=== PATIENT | female | born 1965 | race Caucasian/White ===

== ENCOUNTER → 2017-04-21 | Outpatient (CLI) | payer OTHER ==
[~2017-04-21] MED LIST: 'XANAX0.5 MG PO; AGGRENOX 25 MG-1 CER PO; ALBUTEROL2.5 MG/0.5 INH; ALPRAZOLAM0.5 M1 PO; ALPRAZOLAM0.5 M3 PO; ALPRAZOLAM0.5 MG PO; AMARYL4 MG PO; AMBIEN10 M1 PO; AMITRIPTYLINE10 MG PO; AMITRIPTYLINE50 MG PO; ANTIVERT/2525 MG PO; ASPIR-LOW81 MG PO; ASPIR-TRIN325 MG PO; ASPIRIN81 MG PO; ATARAX25 MG PO; Amitriptyline H10 MG PO; BACLOFEN10 MG PO; BIAXIN500 MG PO; BRIN10TA PO; BUSPAR5 MG PO; CARVEDILOL12.5 MG PO; CIPRO500 MG PO; CIPROFLOXACIN500 MG PO; CLARITIN10 MG PO; CLINDAMYCIN HC300 MG PO; COMBIVENT1 ARO IH; CORDROL20 MG PO; COZAAR100 MG PO; COZAAR50 MG PO; CYMBALTA30 M1 PO; CYMBALTA30 MG; CYMBALTA30 MG PO; CYMBALTA60 MG; CYMBALTA60 MG PO; DARVOCET N 1001 TAB PO; DAYPRO600 M1 PO; DELTASONE5 MG PO; DICLOFENAC SOD75 MG PO; DIOVAN HCT 12.51 TA6 PO; DOCUSATE CALCI100 MG PO; DOCUSATE100 MG PO; DOXYCYCLINE MO100 MG PO; DULOXETINE HCL DR 60; DUONEB 3 MG/3 ML3 M1 NEB; FENOFIBRATE145 MG PO; FLEXERIL10 MG PO; FLEXERIL5 MG PO; FLORINEF0.1 MG PO; FLOVENT 110 M110 MCG INH; FLOVENT0.044 MG/A INH; FLOVENT0.11 MG/AC INH; FORADIL AERO0.012 MG INH; HYDR12.5C PO; HYDR25T PO; HYDRALAZINE HC100 MG PO; HYDRALAZINE HCL25 MG PO; HYDRALAZINE100 MG PO; HYDRALAZINE50 MG PO; HYDROCODONE BIT1 T11 PO; HYDROCODONE-APA1 TA1 PO; HYZAAR 25 MG-101 TA1 PO; HYZAAR 50/12.5M1 TAB PO; IBUPROFEN600 MG PO; JANUVIA100 MG PO; JANUVIA50 MG PO; LABETALOL200 MG PO; LASIX40 MG PO; LATU80TA PO; LIDEX0.05% T; LIDODERM 5% PATC1 EA T; LIORESAL10 MG PO; LOSARTAN POTASS1 TA2; LOVASTATIN10 MG PO; LYRICA150 MG PO; LYRICA200 MG PO; LYRICA75 MG PO; MEDROL DOSEPAK4 MG PO; METOPROLOL100 MG PO; MIRALAX17 GM/DOSE PO; MOTRIN800 MG PO; MUCINEX DM 30/61 TAB PO; MUCINEX600 MG PO; NASONEX0.05 MG/AC NS; NEXIUM40 MG PO; NORCO 325 MG-51 TAB PO; PLAVIX75 MG PO; PRAVACHOL20 MG PO; PRED-PAK 455 MG PO; PREDNICOT20 MG PO; PROTONIX40 MG PO; PROVENTIL0.09 MG/A1 INH; PROVENTIL0.09 MG/AC INH; PULMICORT RESP0.5 MG NEB; PYRIDIUM100 MG PO; RANITIDINE150 MG PO; SEPTRA DS 800 M1 TAB PO; SIMVASTATIN10 MG PO; TECFIDERA PO; TECFIDERA120 MG PO; TESSALON PERLE200 MG PO; TRAMADOL HCL50 MG PO; TRICOR134 MG PO; TYLENOL ES500 MG PO; VENTOLIN H0.09 MG/AC INH; VICODIN 5/500 505 MG PO; VICODIN 500 MG-1 TAB PO; VITAMIN B121000 MC2 SL; VITAMIN B121000 MCG PO; VITAMIN D400 I1 PO; VITAMIN D5000 I3 PO; VITAMIN D50000 I2 PO; XANAX0.5 MG PO; ZANTAC150 MG PO; ZITHROMAX Z PA250 MG PO; ZITHROMAX250 MG PO; ZITHROMAX500 M1 PO; ZOFRAN ODT4 MG SL; ZOLPIDEM10 M1 PO; ZOLPIDEM10 MG PO; [UNRECOGNIZED DRUG - OTHER]; [UNRECOGNIZED DRUG - REMARK]; [UNRECOGNIZED DRUG - REMARK]
[2017-04-21 15:01] LABS: EST GLOM FILT AFRICAN AMERICAN > 60 ml/min
== END | disposition home or self-care (01) ==
LOC: MRI 14:00
PROVIDERS: Internal Medicine
DX: G35 Multiple sclerosis (principal)

== ENCOUNTER 2017-11-18 13:08 | Inpatient (IN) | payer OTHER ==
[~2017-11-18] VITALS: Ht 162.6 cm; Wt 122.5 kg
--- NOTE | ~2017-11-18 | DS ---
[place], [place] DISCHARGE SUMMARY NAME: SUE ABRAHAM [facility] #: [id number] UNIT #: [id number] ROOM: 520 DOCTOR: SAM MACK MD BIRTHDATE: [birth year] DOS: 11/20/2017 DIAGNOSES: 1. Precordial chest pain. 2. Poorly controlled hypertension. 3. Type 2 diabetes mellitus. 4. Multiple sclerosis. 5. Chronic back pain. 6. History of transient ischemic attack. 7. Major depression. MEDICATIONS: Remain the same as on admission. The only new prescription given was increase in metoprolol to 50 b.i.d. Prescriptions for [place] and Ambien were filled because they were due. HOSPITAL COURSE: This patient is 52 years old, comes in with complaints of difficulty with headaches, chest pains, palpitations. After admission, the patient was placed on a monitored floor. No arrhythmias were noted. Consultation with Dr. Roberts was obtained. He never saw the patient during this admission. The metoprolol dosage was increased by Dr. Roberts. The patient once ruled out, was scheduled for a stress test and the patient has remained stable without any new problems. After admission, her chest pains have completely resolved. The blood pressures have been controlled. The stress was done this morning, we are awaiting the results. After that, the patient should be able to go home. DISCHARGE MEDICATIONS: Metoprolol 50 b.i.d., zolpidem 10 at bedtime, amitriptyline 50 at bedtime, Colace 100 b.i.d., Protonix 40 daily, Lasix 40 daily, vitamin D 5000 units daily, losartan 100 daily, Plavix 75 daily, calcium bicarbonate 500 t.i.d., baclofen 10 t.i.d., [place] q.i.d., Xanax 0.5 t.i.d., Lyrica 200 b.i.d., Keppra 1000 b.i.d., Tecfidera 240 b.i.d., aspirin 81 daily, hydralazine 50 t.i.d., glimepiride 4 daily, multivitamin 1 tablet daily, insulin glargine 12 units at bedtime, QVAR 2 puffs daily, MiraLax 17 grams b.i.d., ammonium lactate solution, coverage scale for insulin, DuoNeb q. 6, Topamax 25 daily, fenofibrate 160 daily, bethanechol 25 b.i.d., B12 1000 mcg daily. [place], [place] DISCHARGE SUMMARY NAME: SUE ABRAHAM UNIT #: [id number] ROOM: [facility] DOCTOR: SAM MACK MD BIRTHDATE: [birth year] SAM MACK MD CM:DISCHARG 0 7 SAM MACK MD 11/20/17927 interface
--- NOTE | ~2017-11-18 | PR ---
[place], [place] PROGRESS NOTE NAME: SUE ABRAHAM UNIT #: [id number] ROOM: 520 DOCTOR: SAM MACK MD BIRTHDATE: [birth year] DOS: 11/20/2017 SUBJECTIVE: The patient is doing fine without any complaints. OBJECTIVE EXAMINATION: GENERAL: The patient is awake and alert and oriented. VITAL SIGNS: Blood pressure is 124/77, pulse of 80, respirations 16, temperature 98. LUNGS: Clear. HEART: Regular. ABDOMEN: Obese. EXTREMITIES: Without any edema. ASSESSMENT AND PLAN: 1. Precordial chest pain, ruled out for myocardial infarction. Stress test was done this morning. Awaiting Cardiolite images. The patient should be able to go home today. 2. Benign hypertension, poorly controlled. The Lopressor dosage was increased. Pressure was controlled. 3. Multiple sclerosis without any new problems. The plan is to discharge. SAM MACK MD CM:PNTRANS [id number] SAM MACK MD 11/20/17 1745 interface
--- NOTE | ~2017-11-18 | WRIGHTHP ---
[place], [place] PATIENT HISTORY AND PHYSICAL EXAM NAME: SUE ABRAHAM [facility] #: [id number] UNIT #: [id number] ROOM: 520 DOCTOR: SAM MACK MD BIRTHDATE: [birth year] DOS: 11/18/2017 HISTORY OF PRESENT ILLNESS: The patient is 52-year-old. The patient is very well known to us, comes in with complaints of chest pain and headaches. She was seen in the office. Her blood pressure systolic was 200s, diastolic in the high 90s. The patient was experiencing left-sided chest pain, a burning type, associated with some mild shortness of breath and headaches and dizziness. She denied having any fever, chills, any abdominal pain, nausea, any emesis. PAST MEDICAL HISTORY: Significant for; 1. Benign hypertension. 2. Multiple sclerosis. 3. COPD. 4. Chronic back pain. 5. Transient ischemic attack by history. 6. Major depression. MEDICATIONS: That she is on are QVAR, B12, Xanax, Elavil, aspirin, baclofen, bethanechol, vitamin D, Plavix, Tecfidera, Colace, fenofibrate, Lasix, gabapentin, glimepiride, hydralazine, [place], Keppra, losartan, metoprolol, Protonix, Lyrica, Topamax, zolpidem, Lantus. SOCIAL HISTORY: History of smoking about 7 years ago. Denies using any alcohol. PHYSICAL EXAMINATION: GENERAL: She is awake and alert and oriented. VITAL SIGNS: Blood pressure is 114/60, pulse of 75, respirations 20, temperature 98.1. LUNGS: Clear. HEART: Regular. ABDOMEN: Obese, soft. EXTREMITIES: Without any edema. LABORATORY DATA: EKG done showed sinus rhythm, normal axis, poor R-wave progression in the office. Comprehensive was within normal limits. WBC count is normal. ASSESSMENT AND PLAN: 1. The patient presents with chest pain, precordial. Rule out myocardial infarction was negative, awaiting a stress test. Cardiology consultation was obtained. 2. Benign hypertension, better controlled. Lopressor dosage was increased by Dr. Roberts. 3. Chronic obstructive pulmonary disease without any exacerbations. We will make the breathing treatments p.r.n. [place], [place] PATIENT HISTORY AND PHYSICAL EXAM NAME: SUE ABRAHAM UNIT #: [id number] ROOM: [facility] DOCTOR: SAM MACK MD BIRTHDATE: [birth year] SAM MACK MD CM:HISPHYS:PATIENT HISTORY AND PHYSICAL EXAMINATION 5 SAM MACK MD 11/19/1756 interface
--- NOTE | ~2017-11-18 | ST ---
[place], [place] EXERCISE STRESS TEST REPORT NAME: SUE ABRAHAM UNIT #: [id number] ROOM: 520 DOCTOR: SAM MACK MD BIRTHDATE: [birth year] DOS: 11/20/2017 STRESS TEST. REASON FOR TESTING: Evaluation of chest pain. DESCRIPTION OF PROCEDURE: After explaining procedure and obtaining consent, the patient was subjected to Lexiscan infusion. The patient's heart rate was 70 with the blood pressure 132/80. EKG showed sinus, nonspecific ST. After explaining procedure, the patient was subjected to Lexiscan infusion of 0.4 mg IV. He did not have any complaints during the infusion. There were no EKG changes, no arrhythmias. After that infusion was over, she was injected with Cardiolite and stress images were taken. ASSESSMENT AND PLAN: Lexiscan infusion without any ST-T wave changes or arrhythmias. Cardiolite images pending. SAM MACK MD CM:STRESS:EXERCISE STRESS TEST REPORT [id number] SAM MACK MD
[2017-11-18 13:08] VITALS: BP 179/106
[2017-11-18 13:33] LABS: HEMATOCRIT 38.9 % (37.0-47.0); HEMOGLOBIN 12.4 g/dl (12.0-16.0); MEAN CELL VOLUME 88.6 fl (81.0-99.0); MEAN CORPUSCULAR HGB 28.2 pg (27.0-31.0); MEAN CORPUSCULAR HGB CONC 31.9 g/dl (33.0-37.0); PLATELET COUNT AUTOMATED 242 10*3/uL (130-400); RED BLOOD COUNT 4.39 10*6/uL (4.10-5.10); RED CELL DISTRI WIDTH 12.9 % (0-14.5); WHITE BLOOD COUNT 5.6 10*3/uL (4.8-10.8)
[2017-11-18 13:45] LABS: ACT PARTIAL THROMBO TIME 26.4 SECONDS (20.8-31.5)
[2017-11-18 13:53] LABS: ALBUMIN 4.2 gm/dl (3.1-4.5); ALKALINE PHOSPHATASE 105 U/L (45-117); BUN 16 mg/dl (7-24); CHLORIDE 107 mmol/L (98-107); CREATININE 0.76 mg/dL (0.55-1.02); POTASSIUM 3.8 mmol/L (3.5-5.1); SGOT/AST 23 IU/L (3-35); SGPT/ALT 38 U/L (12-78); SODIUM 144 mmol/L (136-145); TOTAL PROTEIN 8.3 gm/dL (6.4-8.2)
[2017-11-18 13:54] LABS: TROPONIN I < 0.015 ng/ml (<0.045)
[2017-11-18 13:57] LABS: TOTAL CELLS COUNTED 100 #CELLS
[2017-11-18 13:58] LABS: PLATELET SUFFICIENCY NORMAL (NORMAL)
[2017-11-18 14:01] VITALS: BP 125/75
[2017-11-18] MEDS ORDERED: METOPROLOL TART50 M1 PO (14:10)
[2017-11-18] MEDS ORDERED: AMITRIPTYLINE50 MG PO (14:11)
[2017-11-18] MEDS ORDERED: [UNRECOGNIZED DRUG - OTHER] (14:11)
[2017-11-18] MEDS ORDERED: PROTONIX40 MG PO (14:12)
[2017-11-18] MEDS ORDERED: LASIX40 MG PO (14:12)
[2017-11-18] MEDS ORDERED: DOCUSATE SOD100 MG PO (14:12)
[2017-11-18] MEDS ORDERED: VITAMIN D35000 UNIT PO (14:12)
[2017-11-18] MEDS ORDERED: OYSTER SHELL C1 EAC3 PO (14:13)
[2017-11-18] MEDS ORDERED: COZAAR100 MG PO (14:13)
[2017-11-18] MEDS ORDERED: PLAVIX75 M1 PO (14:13)
[2017-11-18] MEDS ORDERED: NORCO 10-325 T1 EACH PO (14:14)
[2017-11-18] MEDS ORDERED: XANAX0.5 MG PO (14:14)
[2017-11-18] MEDS ORDERED: LYRICA200 M1 PO (14:14)
[2017-11-18] MEDS ORDERED: BACLOFEN20 M1 PO (14:14)
[2017-11-18] MEDS ORDERED: ASPIRIN81 M1 PO (14:15)
[2017-11-18] MEDS ORDERED: TECFIDERA240 M2 PO (14:15)
[2017-11-18] MEDS ORDERED: AMBIEN10 M1 PO (14:15)
[2017-11-18] MEDS ORDERED: KEPPRA1000 MG PO (14:15)
[2017-11-18] MEDS ORDERED: AMARYL4 MG PO (14:16)
[2017-11-18] MEDS ORDERED: HYDRALAZINE HYD50 MG PO (14:16)
[2017-11-18] MEDS ORDERED: BETHANECHOL CHL25 MG PO ×2 (14:16→18:09)
[2017-11-18] MEDS ORDERED: NEURONTIN300 MG PO (14:17)
[2017-11-18] MEDS ORDERED: CENTRAL-VITE1 EACH PO (14:17)
[2017-11-18] MEDS ORDERED: QVAR8.7 GM INH (14:18)
[2017-11-18] MEDS ORDERED: LANTUS SOL100 UNIT/1 SC (14:18)
[2017-11-18] MEDS ORDERED: AMLACTIN57 GM T (14:19)
[2017-11-18] MEDS ORDERED: MIRALAX POWDER17 G1 PO (14:19)
[2017-11-18] MEDS ORDERED: NOVOLOG100 UNIT/1 SQ (14:20)
[2017-11-18] MEDS ORDERED: DUONEB 3 MG/3 ML3 M1 INH (14:20)
[2017-11-18] MEDS ORDERED: TOPAMAX25 M3 PO (14:22)
[2017-11-18 15:00] VITALS: BP 143/77
[2017-11-18] MEDS ORDERED: FENOFIBRATE160 MG PO (15:06)
[2017-11-18] MEDS ORDERED: B121000 MCG/1 IM (17:45)
[2017-11-18 18:45] VITALS: BP 142/84
[2017-11-18 20:00] VITALS: BP 114/59
[2017-11-19] VITALS: BP 114/63
[2017-11-19 08:00] VITALS: BP 140/74
[2017-11-19 12:00] VITALS: BP 138/84
[2017-11-19 16:00] VITALS: BP 122/72
[2017-11-19 19:43] VITALS: BP 121/71
[2017-11-20] VITALS: BP 124/77
[2017-11-20] MEDS ORDERED: METOPROLOL TART50 M1 PO (08:45)
[2017-11-20 12:00] VITALS: BP 132/82
== END 2017-11-20 14:51 | disposition home or self-care (01) | DRG 313 ==
LOC: ED 13:08 → 5E 14:14 → EDHOLD 14:14 → 5E 14:27
PROVIDERS: Emergency Medicine
PROC: 3E073KZ Introduction of Other Diagnostic Substance into Coronary Artery, Percutaneous Approach (ICD-10-PCS; principal; 2017-11-20)
PROC: 4A02XM4 Measurement of Cardiac Total Activity, External Approach (ICD-10-PCS; principal; 2017-11-20)
DX: R07.2 Precordial pain (principal); G35 Multiple sclerosis; Z68.42 Body mass index [BMI] 45.0-49.9, adult; I10 Essential (primary) hypertension; F32.9 Major depressive disorder, single episode, unspecified; J44.9 Chronic obstructive pulmonary disease, unspecified; E66.9 Obesity, unspecified; E11.9 Type 2 diabetes mellitus without complications; G89.29 Other chronic pain; M54.9 Dorsalgia, unspecified; Z87.891 Personal history of nicotine dependence; Z79.02 Long term (current) use of antithrombotics/antiplatelets; Z79.82 Long term (current) use of aspirin; Z79.4 Long term (current) use of insulin; Z79.899 Other long term (current) drug therapy; Z86.73 Personal history of transient ischemic attack (TIA), and cerebral infarction without residual deficits; Z88.0 Allergy status to penicillin; Z88.8 Allergy status to other drugs, medicaments and biological substances; Z91.041 Radiographic dye allergy status; Z82.49 Family history of ischemic heart disease and other diseases of the circulatory system

== ENCOUNTER → 2018-06-16 | Outpatient (CLI) | payer OTHER ==
[~2018-06-16] MED LIST changes: +AMLACTIN57 GM T; +ASPIRIN81 M1 PO; +B121000 MCG/1 IM; +BACLOFEN20 M1 PO; +BETHANECHOL CHL25 MG PO; +CENTRAL-VITE1 EACH PO; +DOCUSATE SOD100 MG PO; +DUONEB 3 MG/3 ML3 M1 INH; +FENOFIBRATE160 MG PO; +HYDRALAZINE HYD50 MG PO; +KEPPRA1000 MG PO; +LANTUS SOL100 UNIT/1 SC; +LYRICA200 M1 PO; +METOPROLOL TART50 M1 PO; +MIRALAX POWDER17 G1 PO; +NEURONTIN300 MG PO; +NORCO 10-325 T1 EACH PO; +NOVOLOG100 UNIT/1 SQ; +OYSTER SHELL C1 EAC3 PO; +PLAVIX75 M1 PO; +QVAR8.7 GM INH; +TECFIDERA240 M2 PO; +TOPAMAX25 M3 PO; +VITAMIN D35000 UNIT PO; +[UNRECOGNIZED DRUG - OTHER]
== END | disposition home or self-care (01) ==
LOC: MRI 11:00 → LAB 11:00 → MRI 11:03
DX: G35 Multiple sclerosis (principal); R41.3 Other amnesia; R51 Headache; R42 Dizziness and giddiness

== ENCOUNTER → 2019-12-05 | Outpatient (CLI) | payer MEDICARE, OTHER | END | disposition home or self-care (01) | LOC: MRI 10:00 | DX: G93.9 Disorder of brain, unspecified (principal); G35 Multiple sclerosis; Z79.82 Long term (current) use of aspirin; Z79.899 Other long term (current) drug therapy ==

== ENCOUNTER → 2020-10-17 | Outpatient (CLI) | payer MEDICARE, OTHER ==
[2020-10-17 10:50] LABS: CREATININE 0.84 mg/dL (0.55-1.02)
== END | disposition home or self-care (01) ==
LOC: MRI 10:00 → LAB 10:23 → MRI 10:23
PROVIDERS: Radiology Diagnostic Radiology; ATTEND Psychiatry & Neurology Neurology
DX: G43.909 Migraine, unspecified, not intractable, without status migrainosus (principal)

== ENCOUNTER → 2020-11-05 | Outpatient (CLI) | payer MEDICARE, OTHER | END | disposition home or self-care (01) | LOC: MRI 07:57 | PROVIDERS: ATTEND Psychiatry & Neurology Neurology | DX: I67.89 Other cerebrovascular disease (principal); G35 Multiple sclerosis; G37.8 Other specified demyelinating diseases of central nervous system ==

== ENCOUNTER → 2020-12-12 | Outpatient (CLI) | payer MEDICARE, OTHER | END | disposition home or self-care (01) | LOC: CT 10:00 | PROVIDERS: ATTEND Internal Medicine | DX: M47.816 Spondylosis without myelopathy or radiculopathy, lumbar region (principal); M16.0 Bilateral primary osteoarthritis of hip; M48.061 Spinal stenosis, lumbar region without neurogenic claudication; M51.34 Other intervertebral disc degeneration, thoracic region; M25.752 Osteophyte, left hip; M25.751 Osteophyte, right hip; M19.09 Primary osteoarthritis, other specified site; I70.8 Atherosclerosis of other arteries ==

== ENCOUNTER → 2021-03-20 | Outpatient (CLI) | payer MEDICARE, OTHER ==
[~2021-03-20] MED LIST changes: +ALLEGRA ALLERG180 M2 PO; +AMMONIUM LACTA227 GM T; +ARTHRITIS PAIN100 GM T; +B121000 MCG/2 IM; +ESTRADIOL TD; +FLOVENT HFA10.6 GM IH; +FLOVENT HFA10.6 GM INH; +GOOD NEIGHBOR L10 MG PO; +HYDROXYZINE HCL25 MG PO; -KEPPRA1000 MG PO; +KEPPRA500 MG PO; -LANTUS SOL100 UNIT/1 SC; +LASIX20 MG PO; +LEVEMIR100 UNIT/1 SC; +LINZESS145 MC1 PO; +LINZESS290 MC1 PO; +LOMOTIL 2.5-0.1 EACH PO; +LOVASTATIN20 MG PO; +LYRICA100 M1 PO; +MILK OF MA400 MG/5 M PO; +MUCINEX ER600 MG PO; +NOVOLOG FL100 UNIT/2 SQ; +Nizoral 2%15 GM T; +POTASSIUM CITR15 ME1 PO; +PROAIR HFA8.5 GM INH; +TOPAMAX100 M1 PO; +TOPAMAX50 MG PO; +WELLBUTRIN XL300 MG PO; +ZOFRAN4 MG PO
== END ==
LOC: WOUNDCARE 01:55
PROVIDERS: ATTEND Nurse Practitioner
DX: S81.012A Laceration without foreign body, left knee, initial encounter (principal); E11.65 Type 2 diabetes mellitus with hyperglycemia; E66.01 Morbid (severe) obesity due to excess calories; I10 Essential (primary) hypertension; G89.29 Other chronic pain; M54.9 Dorsalgia, unspecified; F32.9 Major depressive disorder, single episode, unspecified; Z86.73 Personal history of transient ischemic attack (TIA), and cerebral infarction without residual deficits; Z90.49 Acquired absence of other specified parts of digestive tract; Z79.4 Long term (current) use of insulin; Z79.899 Other long term (current) drug therapy; Z68.42 Body mass index [BMI] 45.0-49.9, adult; W19.XXXA Unspecified fall, initial encounter; Y93.89 Activity, other specified; Y92.89 Other specified places as the place of occurrence of the external cause; Y99.8 Other external cause status

== ENCOUNTER → 2021-03-27 | Outpatient (CLI) | payer MEDICARE, OTHER | LOC: WOUNDCARE 01:33 | PROVIDERS: ATTEND Nurse Practitioner | DX: S81.012D Laceration without foreign body, left knee, subsequent encounter (principal); E11.65 Type 2 diabetes mellitus with hyperglycemia; E66.01 Morbid (severe) obesity due to excess calories; I10 Essential (primary) hypertension; G89.29 Other chronic pain; M54.9 Dorsalgia, unspecified; F32.9 Major depressive disorder, single episode, unspecified; Z86.73 Personal history of transient ischemic attack (TIA), and cerebral infarction without residual deficits; Z90.49 Acquired absence of other specified parts of digestive tract; Z79.4 Long term (current) use of insulin; Z79.899 Other long term (current) drug therapy; Z68.42 Body mass index [BMI] 45.0-49.9, adult; W19.XXXD Unspecified fall, subsequent encounter ==

== ENCOUNTER → 2022-08-26 | Outpatient (CLI) | payer OTHER ==
[~2022-08-26] MED LIST changes: +ALORA1 EAC2 TD; +COENZYME Q10100 M2 PO; +CYTOTEC PO; +FEMRING1 EAC1 V; +JARDIANCE10 MG PO; +LEXAPRO10 MG PO; +MELATONIN10 M4 PO; +MELOXICAM7.5 MG PO; +PROVERA2.5 MG PO; +VITAMIN C1000 M5 PO; +VITAMIN E400 UNIT PO
== END | disposition home or self-care (01) ==
LOC: CARD 02:08
PROVIDERS: ATTEND Internal Medicine Cardiovascular Disease
DX: I25.9 Chronic ischemic heart disease, unspecified (principal); R94.31 Abnormal electrocardiogram [ECG] [EKG]